=== PATIENT | female | born 1955 | race Caucasian/White ===

== ENCOUNTER 2025-10-20 16:39 | Inpatient (IN) | payer MEDICARE, OTHER ==
[2025-10-20] VITALS (28 sets, daily range): BP systolic 67–104; BP diastolic 28–84
[~2025-10-20] VITALS: Ht 167.6 cm; Wt 148.6 kg
[2025-10-20 18:32] LABS: Hematocrit 25.5 % (33.0-51.0); Hemoglobin 7.7 g/dL (11.5-16.0); Mean Corpuscular HGB Conc 30.2 g/dL (31.5-36.5); Mean Corpuscular Volume 96 fL (80-100); NRBC ABSOLUTE 0.20 K/mm3 (0.00-0.02); NRBC Auto 0.9 /100 WBC (0.0-0.2); Platelet Count 325 K/mm3 (150-400); RDW Coefficient Variation 18.0 % (11.7-14.2); RDW Standard Deviation 61.4 fL (35.1-46.3)
[2025-10-20] MEDS ORDERED: ACET325 PO (18:35)
[2025-10-20] MEDS ORDERED: ALBU90OI INH (18:36)
[2025-10-20] MEDS ORDERED: HYDCOR2.5C PR (18:37)
[2025-10-20] MEDS ORDERED: ELIQUIS5 M2 PO (18:38)
[2025-10-20] MEDS ORDERED: ATOR40TA PO (18:38)
[2025-10-20] MEDS ORDERED: BISA10S PR (18:40)
[2025-10-20] MEDS ORDERED: BISA5EC PO (18:40)
--- NOTE | 2025-10-20 18:43 | NUR ---
ARRIVAL TO ICU: PT ARRIVED TO ICU THIS EVENING A DIRECT ADMISSION FROM [facility]. PT IS ALERT, ORIENTED X3. UNSURE WHERE SHE IS AT. COOPERATIVE W/ CARE. HR 100-120'S, AFIB ON MONITOR. EKG COMPLETED DUE TO CHEST PAIN & IRREGULAR HR. SBP DOWN TO 80'S FROM 100'S, MAP 65 AT THIS TIME. CORDELIA SURVEY SUPERVISOR NOTIFIED, ORDERS TO INITIATE LEVOPHED TO MAINTAIN MAP >65. SPO2 >90% ON 3L VIA NC. AFEBRILE. MISHRA CATH IN PLACE DRAINING CLOUDY YELLOW URINE TO GRAVITY; MISHRA PLACED IN PYRITESSPORT PRIOR TO TRANSPORT. PT REPORTS RECENT BLOODY STOOLS BUT STATES SHE HAS NOT SEEN HER STOOL BUT WAS TOLD ABOUT IT BY CAREGIVERS. TYPE 2 DM, CONTINUOUS GLUCOSE MONITOR TO R UPPER ARM. PIV TO RAC, LFA SALINE LOCKED. CALL LIGHT IN REACH.
[2025-10-20] MEDS ORDERED: BUDESONIDE-FO10.2 G2 INH (18:44)
[2025-10-20] MEDS ORDERED: CEPACOL THROAT1 EAC1 MM (18:45)
[2025-10-20] MEDS ORDERED: VITAMIN D5000 UNIT PO (18:46)
[2025-10-20] MEDS ORDERED: CETI5 PO (18:46)
[2025-10-20] MEDS ORDERED: Celexa20 MG PO (18:47)
[2025-10-20] MEDS ORDERED: Voltaren100 GM TOP (18:47)
[2025-10-20] MEDS ORDERED: Estrace Vagin42.5 GM VAG (18:49)
[2025-10-20] MEDS ORDERED: FERSU300 PO (18:50)
[2025-10-20] MEDS ORDERED: GABA300 PO (18:51)
[2025-10-20] MEDS ORDERED: GUAI600T33 PO (18:51)
[2025-10-20] MEDS ORDERED: HYDCOR10 PO (18:52)
[2025-10-20] MEDS ORDERED: LANTUS SOL100 UNIT/1 SC (18:53)
[2025-10-20] MEDS ORDERED: INSULIN LI100 UNIT/6 SC (18:55)
[2025-10-20] MEDS ORDERED: JUBLIA4 ML TOP (18:55)
[2025-10-20] MEDS ORDERED: LEVSOD137 PO (18:56)
[2025-10-20] MEDS ORDERED: LIDO5TO TOP (19:07)
[2025-10-20] MEDS ORDERED: MELA3 PO (19:08)
[2025-10-20] MEDS ORDERED: MOUNJARO10 MG/0.5 SC (19:11)
[2025-10-20] MEDS ORDERED: POTA10T PO (19:12)
[2025-10-20] MEDS ORDERED: OMEP20ER PO (19:12)
[2025-10-20] MEDS ORDERED: ROPI1 PO (19:14)
[2025-10-20] MEDS ORDERED: Tasigna200 MG (19:20)
[2025-10-20] MEDS ORDERED: TRAZ50 PO (19:22)
[2025-10-20] MEDS ORDERED: TUSSIN DM 200-118 ML PO (19:24)
[2025-10-20] MEDS ORDERED: FentaNYL Citrate 50 MCG/ML 2 ML Injection IV ONE (19:45)
[2025-10-20] MEDS ORDERED: Albuterol 2.5 MG/3 ML VIAL INH PRN (20:00)
[2025-10-20] MEDS ORDERED: Ondansetron HCl 2 MG / ML 2ML Vial IV PRN (20:00)
[2025-10-20] MEDS ORDERED: FLU VACC TS2025(65UP)/MF59C/PF 45 MCG/0.5 ML SYRINGE IM SCH (20:05)
[2025-10-20] MEDS ORDERED: Amiodarone HCl 450 MG in NS 250 ML IV SCH (20:10)
[2025-10-20] MEDS ORDERED: CefTRIAXone Sodium 1,000 MG in NS 100 ML IV ONE (20:15)
[2025-10-20] MEDS ORDERED: FentaNYL Citrate 50 MCG/ML 2 ML Injection IV PRN (20:20)
[2025-10-20 21:10] LABS: Prothrombin Time Results 14.2 Sec (9.7-11.5)
--- NOTE | 2025-10-20 21:12 | NUR ---
ASSUMPTION OF CARE: ASSUMED CARE OF PT AT 1900, PT IS RELAXING IN BED AND HAS PATENT RAC & LFA PIV. PT A&O 3-4. SBP'S 80'S-90'S HR 100'S AFIB. SPO2>96% ON 3L NC. PROVIDER WAS NOTIFIED OF PRESSURE WOUND AND SEEN PT BEDSIDE. LEVOPHED STARTED AT 3MCG/MIN TO MAINTAIN MAP >65. PT REPORTS CP AND EKG WAS COMPLETED JUST BEFORE SHIFT CHANGE AND UNREMARKABLE. FENTANYL 25MCG GIVEN FOR BACK PAIN AND CP.PROVIDER AND PT TALKED ABOUT CODE STATUS CHANGED TO DNR PER PT'S REQUEST. PT HAS PATENT MISHRA DRAINING TO GRAVITY AND SEDIMENT AND PUSS IN THE TUBING. PT HAS CALL LIGHT IN REACH AND BED LOW AND LOCKED FOR SAFETY.
[2025-10-20] MEDS ORDERED: NS 250 ML IV PRN (21:15)
[2025-10-20 21:23] LABS: Alanine Aminotransfer (ALT/SGP 36.0 U/L (12-78); Albumin, Blood 2.7 g/dL (3.4-5.0); Albumin/Globulin Ratio 0.6 (0.8-1.8); Anion Gap 13.0 mmol/L (3-11); Aspartate Aminotrans (AST/SGOT 25.0 U/L (12-37); Bilirubin, Total 0.7 mg/dL (0.1-1.0); Blood Urea Nitrogen 34.0 mg/dL (8-24); CO2, Blood 20.0 mmol/L (21-32); Calcium, Blood 8.3 mg/dL (8.5-10.1); Chloride, Blood 102.0 mmol/L (98-108); Creatinine, Blood 1.49 mg/dL (0.40-1.00); Globulin, Blood 4.7 g/dL (2.2-4.0); Glucose, Blood 229.0 mg/dL (70-99); Potassium, Blood 4.4 mmol/L (3.5-5.5); Sodium, Blood 131.0 mmol/L (136-145); Thyroid Stimulating Hormone 0.036 uIU/mL (0.360-4.800); Total Protein, Blood 7.4 g/dL (6.4-8.2)
[2025-10-20 22:52] LABS: Hematocrit 26.1 % (33.0-51.0); Hemoglobin 7.9 g/dL (11.5-16.0)
[2025-10-21] VITALS (92 sets, daily range): BP systolic 79–130; BP diastolic 54–118
[2025-10-21] MEDS ORDERED: Insulin Human Lispro 100 Units/ML 3ML Syringe SC SCH
[2025-10-21] MEDS ORDERED: NS 500 ML IV SCH (00:57)
[2025-10-21 04:22] LABS: Hematocrit 25.5 % (33.0-51.0); Hemoglobin 7.6 g/dL (11.5-16.0); Mean Corpuscular HGB Conc 29.8 g/dL (31.5-36.5); Mean Corpuscular Volume 97 fL (80-100); NRBC ABSOLUTE 0.26 K/mm3 (0.00-0.02); NRBC Auto 0.7 /100 WBC (0.0-0.2); Platelet Count 456 K/mm3 (150-400); RDW Coefficient Variation 17.9 % (11.7-14.2); RDW Standard Deviation 62.6 fL (35.1-46.3)
[2025-10-21 04:37] LABS: Prothrombin Time Results 15.3 Sec (9.7-11.5)
[2025-10-21 04:41] LABS: Alanine Aminotransfer (ALT/SGP 46.0 U/L (12-78); Albumin, Blood 2.5 g/dL (3.4-5.0); Albumin/Globulin Ratio 0.5 (0.8-1.8); Anion Gap 16.0 mmol/L (3-11); Aspartate Aminotrans (AST/SGOT 45.0 U/L (12-37); Bilirubin, Total 0.7 mg/dL (0.1-1.0); Blood Urea Nitrogen 43.0 mg/dL (8-24); CO2, Blood 16.0 mmol/L (21-32); Calcium, Blood 8.0 mg/dL (8.5-10.1); Chloride, Blood 102.0 mmol/L (98-108); Creatinine, Blood 1.75 mg/dL (0.40-1.00); Globulin, Blood 4.6 g/dL (2.2-4.0); Glucose, Blood 265.0 mg/dL (70-99); Potassium, Blood 5.2 mmol/L (3.5-5.5); Sodium, Blood 129.0 mmol/L (136-145); Total Protein, Blood 7.1 g/dL (6.4-8.2)
[2025-10-21 04:46] LABS: BAND PERCENT MAN 3 % (0-8); BASOPHILS ABSOLUTE MAN 0.00 K/mm3 (0.00-0.23); BASOPHILS PERCENT MAN 0 % (0-2); EOSINOPHILS ABSOLUTE MAN 0.00 K/mm3 (0.00-0.68); EOSINOPHILS PERCENT MAN 0 % (0-6); LYMPHOCYTES ABSOLUTE MAN 0.36 K/mm3 (0.84-5.20); LYMPHOCYTES PERCENT MAN 1 % (21-46); METAMYELOCYTE ABSOLUTE MAN 0.72 K/mm3 (0.00-0.00); METAMYELOCYTE PERCENT MAN 2 % (0-0); MONOCYTES ABSOLUTE MAN 1.44 K/mm3 (0.16-1.47); MONOCYTES PERCENT MAN 4 % (4-13); MYELOCYTE ABSOLUTE MAN 1.80 K/mm3 (0.00-0.00); MYELOCYTE PERCENT MAN 5 % (0-0); NEUTROPHILS ABSOLUTE MAN 31.76 K/mm3 (1.96-9.15); SEG NEUTROPHILS PERCENT MAN 85 % (41-73)
[2025-10-21] MEDS ORDERED: Levothyroxine Sodium 0.137 MG Tab PO SCH (06:00)
--- NOTE | 2025-10-21 06:11 | NUR ---
SHIFT SUMM: PT IS A&OX3-4, SBP'S 80'S-90'S AND HR IN 100-110'S AFIB. LEVOPHED AND AMIODARONE CONTINUE TO INFUSE (SEE EMAR) WITH A GOAL MAP OF >65. PT HAS A PATENT RAC PIV AND LIJ CENTRAL LINE. PT CURRENTLY HAS LR INFUSING AT 125ML/HR FOR 500ML'S FOR RISING LACTIC ACID (SEE LABS). PT IS MAINTAING SPO2 >94% ON 3L NC. PATENT MISHRA DRAINING YELLOW URINE W/SEDIMENT TO GRAVITY. PT HAS BEEN GIVEN NAUSEA MED X1 THIS SHIFT AND FENTANYL FOR PAIN PRN Q2 FOR CP AND BACK PAIN (SEE EMAR). PT HAS 1 MEDIUM BM THIS SHIFT THAT WAS VERY DARK. PT RECIEVED INSULIN COVERAGE THIS SHIFT. FULL LIQUID DIET. CALL LIGHT IN REACH AND BED LOW AND LOCKED FOR SAFETY.
--- NOTE | 2025-10-21 08:34 | NUR ---
PALLIATIVE CARE CONSULT: RECEIVED CONSULT FOR AD/POLST, ADVANCED CARE PLANNING. REVIEWED MEDICAL RECORD. NO POLST ON FILE HERE BUT FOUND POLST ON FILE WITH [facility] STATING CPR. PT IS CURRENTLY DNR. WILL ADDRESS WITH PT/SPOUSE. WILL RECOMMEND NEW POLST TO BE COMPLETED AND REQUEST ADVANCE DIRECTIVE.
[2025-10-21] MEDS ORDERED: Insulin Glargine 100 Unit/ML 3 ML SYR SC SCH (09:00)
[2025-10-21] MEDS ORDERED: Estradiol Vag Cream 0.1 MG/G 42.5 GM Tube VAG SCH (09:00)
--- NOTE | 2025-10-21 09:24 | NUR ---
ASSUMPTION OF CARE ASSUMED CARE OF PATIENT AT APPORX 0700. PATIENT A&OX4 AND ABLE TO MAKE NEEDS KNOWN. 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 HR AFIB IN THE 90S-100S. LEFT IJ PATENT AND INFUSING LEVOPHED AND AMIO PER EMAR. SEE FLOWSHEET FOR TITRATION. BP STABLE WITH MAPS >65 ON THE LEVOPHED. PATIENT ON 3LO2 VIA NC WITH SPO2 >94%. MISHRA PATENT AND DRAINING YELLOW URINE TO GRAVITY. LR BOLUS INFUSING AT 125 ML/HR. CALL LIGHT IN REACH. BED IN LOWEST POSITION.
--- NOTE | 2025-10-21 10:11 | NUR ---
PALLIATIVE CARE NOTE: CALLED [facility] AND REQUESTED AD/POLST/POA RECORDS ON FILE. SPOKE TO KAITLIN IN [facility]. SHE STATED PT DOES NOT HAVE A AD OR POA ON FILE. PT POLST STATES DNR FULL MEASURES. SHE WILL FAX POLST TO DEPT.
--- NOTE | 2025-10-21 10:34 | NUR ---
PROVIDER CONTACT DR WEST SAW PICTURES OF PATIENTS WOUND ON RIGHT PERITONEAL FOLD AND BUTTOCKS.
[2025-10-21] MEDS ORDERED: Albumin (Human) 25gm/100ml 100 ML IV ONE (11:30)
--- NOTE | 2025-10-21 15:13 | NUR ---
PALLIATIVE CARE VISIT: MET WITH PT AT 1135 TO DISCUSS ADVANCED CARE PLANNING AND AD/POLST. SHE IS AGREEABLE TO VISIT. PT STATES SHE IS DNR/FULL MEASURES. EDUCATED HER ON WHAT DNR FULL MEASURES IS. PT STATES SHE WOULD WANT TO BE INTUBATED BUT NO CPR. 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 RECEIVED POLST AND ADVANCE DIRECTIVE FROM [facility] VIA FAX. POLST STATES DNR, FULL MEASURES DATED 07/11/24. ADVANCE DIRECTIVE NAMES JUAN [facility] REP. SENT TO MEDICAL RECORDS AND PLACED COPY ON CHART. FAXED COPY TO [facility]. CALLED DR. WEST AND HE IS AGREEABLE TO LIMITED CODE STATUS, PROVIDE MEDICATIONS AND INTUBATION. UPDATED BREAK RN.
[2025-10-21] MEDS ORDERED: Nystatin 100,000 Unit/ML Susp 5 ML UDC SS SCH (17:00)
--- NOTE | 2025-10-21 17:23 | NUR ---
SHIFT SUMMARY PATIENT ALERT AND ORIENTED X4 WITH SOME INTERMITTENT CONFUSION. PATIENT IS ABLE TO MAKE NEEDS KNOWN. HR AFIB IN THE 80S-100S. LEFT IJ PATENT AND INFUSING LEVOPHED AND AMIO PER EMAR. SEE FLOWSHEET FOR TITRATIONS. BP STABLE ON THE LEVOPHED WITH MAPS >65. PATIENT ON RA WITH SPO2 >94%. MISHRA PATENT AND DRAINING YELLOW URINE TO GRAVITY. PATIENT MEDICATED WITH ZOFRAN PER EMAR X1 THIS SHIFT FOR NAUSEA. PATIENT TOLERATES WATER AND ICE CHIPS. ONE SMEAR BM THIS SHIFT. PATIENT WILL HAVE BIOPSY TOMORROW MORNING FOR GROWTH ON RIGHT PERITONEAL FOLD WITH DR MORENO AT BEDSIDE. CALL LIGHT IN REACH. BED IN LOWEST POSITION.
[2025-10-21] MEDS ORDERED: CefTRIAXone Sodium 2,000 MG in NS 100 ML IV SCH (21:00)
--- NOTE | 2025-10-21 22:16 | NUR ---
ASSUMPTION OF CARE NOTE: PT IS RELAXING IN BED AND ABLE TO ANSWER ALL ORIENTATION QUESTIONS AND FOLLOW COMMANDS. CURRENTLY ON RA AND SPO2 >94%. LEVO INFUSING AT 3MCG/MIN-SBP'S 100'S AND HR AFIB 100-110'S. AMIODARONE INFUSING AND WILL BE SHUT OFF AT 2230 (SEE EMAR). PATENT MISHRA DRAINING TO GRAVITY WITH SEDIMENT IN THE TUBING. PATENT LIJ. PT WAS EXPERIENCING NAUSEA FOR DAYSHIFT BUT REPORTS NONE RIGHT NOW AND TOLERATING ICE CHIPS. PT REPORTS NO PAIN. CALL LIGHT IN REACH AND BED LOW AND LOCKED FOR SAFETY.
[2025-10-22] VITALS (63 sets, daily range): BP systolic 75–142; BP diastolic 11–124
[2025-10-22 03:41] LABS: BASOPHILS ABSOLUTE AUTO 0.09 K/mm3 (0.00-0.23); BASOPHILS PERCENT AUTO 0 % (0-2); EOSINOPHILS ABSOLUTE AUTO 0.00 K/mm3 (0.00-0.68); EOSINOPHILS PERCENT AUTO 0 % (0-6); Hematocrit 21.9 % (33.0-51.0); Hemoglobin 6.5 g/dL (11.5-16.0); IMMATURE GRAN ABSOLUTE AUTO 1.72 K/mm3 (0.00-0.10); IMMATURE GRAN PERCENT AUTO 6 % (0-1); LYMPHOCYTES ABSOLUTE AUTO 0.64 K/mm3 (0.84-5.20); LYMPHOCYTES PERCENT AUTO 2 % (21-46); MONOCYTES ABSOLUTE AUTO 1.07 K/mm3 (0.16-1.47); MONOCYTES PERCENT AUTO 4 % (4-13); Mean Corpuscular HGB Conc 29.7 g/dL (31.5-36.5); Mean Corpuscular Volume 94 fL (80-100); NEUTROPHILS ABSOLUTE AUTO 23.72 K/mm3 (1.96-9.15); NEUTROPHILS PERCENT AUTO 87 % (41-73); NRBC ABSOLUTE 0.04 K/mm3 (0.00-0.02); NRBC Auto 0.1 /100 WBC (0.0-0.2); Platelet Count 296 K/mm3 (150-400); RDW Coefficient Variation 18.0 % (11.7-14.2); RDW Standard Deviation 60.4 fL (35.1-46.3)
[2025-10-22 03:56] LABS: Anion Gap 13.0 mmol/L (3-11); Blood Urea Nitrogen 54.0 mg/dL (8-24); CO2, Blood 19.0 mmol/L (21-32); Calcium, Blood 8.2 mg/dL (8.5-10.1); Chloride, Blood 101.0 mmol/L (98-108); Creatinine, Blood 2.06 mg/dL (0.40-1.00); Glucose, Blood 231.0 mg/dL (70-99); Potassium, Blood 4.8 mmol/L (3.5-5.5); Sodium, Blood 128.0 mmol/L (136-145)
[2025-10-22 04:26] LABS: pH Blood Venous 7.31 (7.34-7.37)
[2025-10-22] MEDS ORDERED: Bupivacaine HCl 0.25% 30 ML Injection SC SCH (06:00)
--- NOTE | 2025-10-22 06:18 | NUR ---
SHIFT SUMM: PT'S ORIENTATION REMAINS THE SAME ABLE TO MAKE NEEDS KNOWN AND ANSWER QUESTIONS/FOLLOW COMMANDS. LEVO AND AMIODARONE OFF. SBP'S 100'S-130'S AND MAP GOAL >65. HR IN 100-110'S. SPO2 96% ON 2LNC WHILE ASLEEP OR SOB AND RA BASELINE. PATENT MISHRA DRAINING TO GRAVITY AND PATENT LIJ. SOME NAUSEA THIS SHIFT AND ZOFRAN GIVEN.PT REPORTS NO PAIN. HGB 6.5- 1 UNIT PRBC INFUSING. PT HAD A SMALL BM THIS SHIFT. CALL LIGHT CLOSE AND BED LOW AND LOCKED FOR SAFETY.
--- NOTE | 2025-10-22 08:24 | NUR ---
ASSUMPTION OF CARE ASSUMED CARE OF PATIENT AT APPROX 0700. PATIENT A&OX4 AND ABLE TO MAKE NEEDS KNOWN. OCCATIONALLY PATIENT WILL CALL OUT FOR HELP INSTEAD OF USING CALL LIGHT. HR AFIB IN THE 80S-90S. BP STABLE WITH MAPS >65. LEFT IJ PATENT AND INFUSING BLOOD PER EMAR. PATIENT ON RA WITH SPO2 >94%. MISHRA PATENT AND DRAINING URINE TO GRAVITY. CALL LIGHT IN REACH. BED IN LOWEST POSITION.
[2025-10-22] MEDS ORDERED: Albumin (Human) 25gm/100ml 100 ML IV ONE (11:40)
--- NOTE | 2025-10-22 17:22 | NUR ---
SHIFT SUMMARY PATIENT A&OX4 AND ABLE TO MAKE NEEDS KNOWN. PATIENT ENDORSES NEUROPATHY IN BLE. PATIENT USES CALL LIGHT, BUT OCCATIONALLY WILL YELL OUT FOR HELP. HR AFIB IN THE 80S-100S. BP STABLE WITH MAPS >65. PATIENT HAS PITTING EDEMA TO BLE. PATIENT ON RA WITH SPO2 >94%. PATIENT WORE 2L O2 A COUPLE TIMES THROUGHOUT THE DAY AFTER LYING FLAT D/T SOB. MISHRA PATENT AND DRAINING URINE TO GRAVITY. PATIENT HAD ONE BM THIS SHIFT. PATIENT WILL START BOWEL PREP FOR COLONOSCOPY THIS EVENING. LEFT IJ WAS REMOVED TODAY. PICC TO JEAN-PIERRE PATENT AND SALINE LOCKED. CALL LIGHT IN REACH. BED IN LOWEST POSITION.
[2025-10-22] MEDS ORDERED: Peg/Electrolytes 4,000 ML BTL PO ONE (18:00)
--- NOTE | 2025-10-22 18:36 | NUR ---
PROVIDER CONTACT DR STAFFORD CONTACTED ABOUT PATIENT SHOWING S/S OF FLUID OVERLOAD WITH WORSENING SOB WITH EXERTION AND PERIPHERAL EDEMA. PATIENT ORDERED TO CONSUME 4L BOWEL PREP OVER NEXT [address] STAFFORD GIVING ONE TIME ORDER FOR 80MG LASIX NOW.
--- NOTE | 2025-10-22 20:45 | NUR ---
ASSUMED CARE AT 1900 PATIENT IS ALERT AND ORIENTED X3, FORGETFUL. FOLLOWS ALL COMMANDS, WEAKNESS. 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 SP02 95% ON 2L VIA NC, BREATHING TREATMENT PER RT. LS CLEAR TO DIMINISHED. HR AFIB 90s-110. BP STABLE. DENIES CP/PRESSURE. MISHRA PATENT AND DRAINING TO GRAVITY. PATIENT DRINKING BOWEL PREP. REPOSITIONED. CALL LIGHT IN REACH
[2025-10-22] MEDS ORDERED: Insulin Glargine 100 Unit/ML 3 ML SYR SC SCH (21:00)
[2025-10-23] VITALS (23 sets, daily range): BP systolic 85–139; BP diastolic 35–95
[2025-10-23 03:33] LABS: BASOPHILS ABSOLUTE AUTO 0.03 K/mm3 (0.00-0.23); BASOPHILS PERCENT AUTO 0 % (0-2); EOSINOPHILS ABSOLUTE AUTO 0.00 K/mm3 (0.00-0.68); EOSINOPHILS PERCENT AUTO 0 % (0-6); Hematocrit 23.4 % (33.0-51.0); Hemoglobin 7.2 g/dL (11.5-16.0); IMMATURE GRAN ABSOLUTE AUTO 1.02 K/mm3 (0.00-0.10); IMMATURE GRAN PERCENT AUTO 5 % (0-1); LYMPHOCYTES ABSOLUTE AUTO 0.47 K/mm3 (0.84-5.20); LYMPHOCYTES PERCENT AUTO 2 % (21-46); MONOCYTES ABSOLUTE AUTO 1.09 K/mm3 (0.16-1.47); MONOCYTES PERCENT AUTO 5 % (4-13); Mean Corpuscular HGB Conc 30.8 g/dL (31.5-36.5); Mean Corpuscular Volume 93 fL (80-100); NEUTROPHILS ABSOLUTE AUTO 18.83 K/mm3 (1.96-9.15); NEUTROPHILS PERCENT AUTO 88 % (41-73); NRBC ABSOLUTE 0.03 K/mm3 (0.00-0.02); NRBC Auto 0.1 /100 WBC (0.0-0.2); Platelet Count 263 K/mm3 (150-400); RDW Coefficient Variation 18.1 % (11.7-14.2); RDW Standard Deviation 58.4 fL (35.1-46.3)
[2025-10-23 03:34] LABS: pH Blood Venous 7.36 (7.34-7.37)
[2025-10-23 03:45] LABS: Anion Gap 13.0 mmol/L (3-11); Blood Urea Nitrogen 61.0 mg/dL (8-24); CO2, Blood 20.0 mmol/L (21-32); Calcium, Blood 7.8 mg/dL (8.5-10.1); Chloride, Blood 101.0 mmol/L (98-108); Creatinine, Blood 1.92 mg/dL (0.40-1.00); Glucose, Blood 213.0 mg/dL (70-99); Potassium, Blood 4.7 mmol/L (3.5-5.5); Sodium, Blood 129.0 mmol/L (136-145)
--- NOTE | 2025-10-23 06:21 | NUR ---
SHIFT SUMMARY PATIENT IS ALERT AND ORIENTED X3-4. SP02 95% ON 2L VIA NC. SOB WITH ANY EXERTION AND REPOSITIONING. LS CLEAR TO DIMINISHED. HR AFIB 90s-110s. BP STABLE. DENIES CP/PRESSURE. MISHRA PATENT AND DRAINING TO GRAVITY. ONE LARGE BM THIS SHIFT, PATIENT DRINKING BOWEL PREP AGAIN THIS AM. REPOSITIONED Q2 HOURS. CALL LIGHT IN REACH
[2025-10-23] MEDS ORDERED: Peg/Electrolytes 4,000 ML BTL PO ONE (07:00)
--- NOTE | 2025-10-23 07:00 | NUR ---
ASSUMED CARE. RECEIVED REPORT FROM RN AT BEDSIDE. PT IN BED. PT DRINKING BOWEL PREP WILLINGLY WITHOUT NAUSEA OR VOMITING. NO STOOL AT THIS TIME. F/C PATENT. VSS. NO VAGINAL DRAINAGE. 4+ PITTING EDEMA IN BLE. GENERALIZED EDEMA.
--- NOTE | 2025-10-23 14:00 | NUR ---
PT HAS HAD 2 XTRA LARGE STOOLS AND 2 SMALL SMEARS. PT STILL HAVEING BLACK RUNNY STOOLS. DR. Brady NOTIFIED. NEW ORDER FOR SUPREP OBTAINED AND PHARMACY WILL SEND IT STAT.
[2025-10-23 14:34] LABS: Ferritin, Serum 104.0 ng/mL (8-252); Total Iron Binding Capacity 303.0 ug/dL (250-450)
--- NOTE | 2025-10-23 17:32 | NUR ---
END OF SHIFT. PT HAS HAD MULTIPLE BLACK LIQUID STOOLS FROM BOWEL PREP. 0 RED MIXED IN IT. FECAL MANAGEMENT DEVICE PLACED. VSS. DR. SNEED NOTIFIED OF CONTINUED BLACK LIQUID STOOLS AND 2ND BOWEL PREP OF SURPRED GIVEN. PT HAS O2 AT 2 LITERS ON WITH A SATURATION OF 92. PT IS 88% ON ROOM AIR. P.T. HAS EXAMINED PT TODAY. PT IS SCHEDULED FOR A CONONOSCOPY TODAY WITHOUT A SET TIME BUT STOOLS AT THIS TIME ARE STILL BLACK.F/C THAT WAS INSERTED IN [facility] IS PATENT.CBG'S ARE Q 6 HOURS WITH SLIDING SCALE COVERAGE AND HAS RANGED FROM 170-230.MEDICATED WITH FENTANYL 25 MICS DUE TO ANUS PAIN.
--- NOTE | 2025-10-23 18:19 | NUR ---
PT TO DAY SURGERY. PT TAKEN VIA BED MONITORED WITH O2 AT 2 LITERS PER NC. 0 C/O PAIN. F/C AND FECAL MANAGEMENT DEVICE IN PLACE. PT HAS BLACK STOOL IN TUBING. COLONOSCOPY ON HOLD. PT WILL HAVE EGD DONE.
--- NOTE | 2025-10-23 18:38 | NUR ---
RETURN FROM DAY SURGERY. PT RETURNED VIA BED WITHOUT PRECEDURE DONE. PT WILL BE DONE LATER TONIGHT.PT A LITTLE CONFUSED AND FRUSTRATED. PT ALLOWED TO VENT. PT STATES SHE FEELS BETTER.
--- NOTE | 2025-10-23 20:00 | NUR ---
ASSUMPTION OF CARE: ASSUMED CARE AT START OF SHIFT (1899). REPORT RECEIVED FROM DAY SHIFT RN. PT IS DOING WELL AND RESTING IN BED. PT IS ALERT AND FOLLOWING COMMANDS. PT DENIES ANY CP OR SOB AT THIS TIME. LUNG SOUNDS ARE CLEAR, PT IS ON 02 @ 2LPM VIA NC, SP2 >95%. A-FIB RYTHM WITH SBP: 120'S MAP >65 HR: 90-100'S. IV: PICC LINE IN RUE. MISHRA CATHETER AND RECTAL TUBE IN PLACE AND DRAINING TO GRAVITY. LINES, CORDS, AND TUBES PLACED OUT OF REACH. CALL LIGHT PLACED WITHIN REACH.
[2025-10-23] MEDS ORDERED: FentaNYL Citrate 50 MCG/ML 2 ML Injection ONE (20:58)
[2025-10-23] MEDS ORDERED: Dexamethasone Sod Phos 10 MG/ML 1ML VIAL ONE (20:59)
[2025-10-23] MEDS ORDERED: Ondansetron HCl 2 MG / ML 2ML Vial ONE (20:59)
[2025-10-23] MEDS ORDERED: SuccINYLCHOLINE Chloride 100 MG/5 ML 5MLSYR ONE (20:59)
[2025-10-24] VITALS (20 sets, daily range): BP systolic 107–149; BP diastolic 60–90
[2025-10-24] MEDS ORDERED: DEXTROMETHORPHAN/BENZOCAINE 1 EACH LOZENGE MT PRN (00:45)
--- NOTE | 2025-10-24 06:50 | NUR ---
SHIFT SUMMARY: PT IS DOING WELL AND RESTING IN BED. NO ACUTE CHNAGES THROUGHOUT THE SHIFT. VITAL SIGNS REMAIN STABLE. PT WAS ABLE TO SLEEP A PORTION OF THE NIGHT. PRIOR TO SHIFT CHANGE PT STARTED FEELING SOB AND THEY HAD AUDIBLE WHEEZES. PT ECEIVED A BREATHING TREATMENT. POST TREATMENT PT STATED THAT THEIR BREATHING FELT BETTER. IV: PICC LINE IN RUE. MISHRA CATHETER IN PLACE AND DRAINING TO GRAVITY. LINES AND CORDS PLACED OUT OF REACH. CALL LIGHT PLACED WITHIN REACH.
--- NOTE | 2025-10-24 08:59 | NUR ---
ASSUMPTION OF CARE/TRANSFER TO PCU: THIS RN ASSUMED CARE OF PT AT APPROX 0700, BEDSIDE REPORT FROM HECTOR RESENDEZ. PT A/OX4, ABLE TO MAKE NEEDS KNOWN. VSS. KAYLENE DAVIS BM THIS AM, ROCKY CARE/MISHRA CARE PROVIDED. PT NPO OF 0800 FOR EGD W/ DR. SNEED. REPORT TO ARABELLA RESENDEZ TO ASSUME CARE OF PT. PT TRANSFERRED TO PCU-4 BY THIS RN.
[2025-10-24 09:37] LABS: BASOPHILS ABSOLUTE AUTO 0.02 K/mm3 (0.00-0.23); BASOPHILS PERCENT AUTO 0 % (0-2); EOSINOPHILS ABSOLUTE AUTO 0.00 K/mm3 (0.00-0.68); EOSINOPHILS PERCENT AUTO 0 % (0-6); Hematocrit 23.9 % (33.0-51.0); Hemoglobin 7.4 g/dL (11.5-16.0); IMMATURE GRAN ABSOLUTE AUTO 0.44 K/mm3 (0.00-0.10); IMMATURE GRAN PERCENT AUTO 3 % (0-1); LYMPHOCYTES ABSOLUTE AUTO 0.31 K/mm3 (0.84-5.20); LYMPHOCYTES PERCENT AUTO 2 % (21-46); MONOCYTES ABSOLUTE AUTO 0.72 K/mm3 (0.16-1.47); MONOCYTES PERCENT AUTO 5 % (4-13); Mean Corpuscular HGB Conc 31.0 g/dL (31.5-36.5); Mean Corpuscular Volume 95 fL (80-100); NEUTROPHILS ABSOLUTE AUTO 14.68 K/mm3 (1.96-9.15); NEUTROPHILS PERCENT AUTO 91 % (41-73); NRBC ABSOLUTE 0.00 K/mm3 (0.00-0.02); NRBC Auto 0.0 /100 WBC (0.0-0.2); Platelet Count 247 K/mm3 (150-400); RDW Coefficient Variation 17.8 % (11.7-14.2); RDW Standard Deviation 59.1 fL (35.1-46.3)
[2025-10-24] MEDS ORDERED: NS 500 ML IV SCH (09:50)
[2025-10-24 09:58] LABS: Anion Gap 14.0 mmol/L (3-11); Blood Urea Nitrogen 54.0 mg/dL (8-24); CO2, Blood 22.0 mmol/L (21-32); Calcium, Blood 8.4 mg/dL (8.5-10.1); Chloride, Blood 100.0 mmol/L (98-108); Creatinine, Blood 1.6 mg/dL (0.40-1.00); Glucose, Blood 200.0 mg/dL (70-99); Potassium, Blood 3.3 mmol/L (3.5-5.5); Sodium, Blood 133.0 mmol/L (136-145)
--- NOTE | 2025-10-24 11:00 | NUR ---
10/24/25 Gerri Ontiveros INTO OR 4 @ 1040- CONFIRMED AND REVIEWED H&P, MEDCICATIONS, ALLERGIES, MEDICAL HISTORY, RESPIRATORY HISTORY, VITAL SIGNS, 3-LEAD EKG, CONSENTS, AND PHYSICIAN ORDERS. PATIENT CONFIRMS NPO STATUS AND AGREES WITH SCHEDULED PROCEDURE. MONITOR INTACT WITH CONTINUOUS PULSE OXIMETRY, CAPNOGRAPHY, 3-LEAD EKG, INTERMITTENT BP. SUPPLEMENTAL O2 TO BE TITRATED THROUGHOUT PROCEDURE TO MAINTAIN O2 SATURATION ABOVE 90%. PATIENT DETERMINED TO BE ASA APPROPRIATE FOR GENERAL. PROVIDING ANESTHESIA-SEE ANESTHESIA RECORD.
[2025-10-24] MEDS ORDERED: Albuterol 2.5 MG/3 ML VIAL ONE (11:29)
[2025-10-24] MEDS ORDERED: Iron Dextran 50 MG / ML 2ML Vial IV ONE (12:00)
[2025-10-24] MEDS ORDERED: Iron Dextran 975 MG in NS 250 ML IV ONE (13:00)
--- NOTE | 2025-10-24 18:49 | NUR ---
SHIFT SUMMARY PATIENT AOX4 ABLE TO MAKE NEEDS KNOWN SHE DENIES CP OR SOB. SHE TRANSFERED FROM ICU TO PCU. WAS NPO FOR EGD. VITALS STABLE AND TOLERATING HER MEALS S/P EGD. SHE DID HAVE 2 INCONTINENT LOOSE DARK BROWN STOOLS. HER MISHRA IS DRAINING CLEAR YELLOW URINE TO GRAVITY. SHE IS SATTING GREATER THAN 90% BETWEEN 1-3L NC.
[2025-10-25 04:21] VITALS: BP 137/83
[2025-10-25 04:25] LABS: BASOPHILS ABSOLUTE AUTO 0.02 K/mm3 (0.00-0.23); BASOPHILS PERCENT AUTO 0 % (0-2); EOSINOPHILS ABSOLUTE AUTO 0.00 K/mm3 (0.00-0.68); EOSINOPHILS PERCENT AUTO 0 % (0-6); Hematocrit 23.4 % (33.0-51.0); Hemoglobin 7.1 g/dL (11.5-16.0); IMMATURE GRAN ABSOLUTE AUTO 0.50 K/mm3 (0.00-0.10); IMMATURE GRAN PERCENT AUTO 4 % (0-1); LYMPHOCYTES ABSOLUTE AUTO 0.33 K/mm3 (0.84-5.20); LYMPHOCYTES PERCENT AUTO 2 % (21-46); MONOCYTES ABSOLUTE AUTO 0.82 K/mm3 (0.16-1.47); MONOCYTES PERCENT AUTO 6 % (4-13); Mean Corpuscular HGB Conc 30.3 g/dL (31.5-36.5); Mean Corpuscular Volume 94 fL (80-100); NEUTROPHILS ABSOLUTE AUTO 12.26 K/mm3 (1.96-9.15); NEUTROPHILS PERCENT AUTO 88 % (41-73); NRBC ABSOLUTE 0.05 K/mm3 (0.00-0.02); NRBC Auto 0.4 /100 WBC (0.0-0.2); Platelet Count 219 K/mm3 (150-400); RDW Coefficient Variation 17.5 % (11.7-14.2); RDW Standard Deviation 58.4 fL (35.1-46.3)
--- NOTE | 2025-10-25 04:36 | NUR ---
SHIFT SUMMARY THIS RN ASSUMED CARE OF PATIENT AT 1900. PT A&O X3-4. OCCASIONALLY CONFUSED ABOUT WHERE SHE IS WHEN SHE WAKES UP. NEEDING 1-2L VIA NC TO MAINTAIN SPO2. BP STABLE. AFIB WITH HR 80-90'S. PT DENIES CHEST PAIN/PRESSURE. DENIES N/V. NOTED SMALL SMEARS OF DARK INCONTINENT STOOLS. PT DECLINED COLONOSCOPY PREVIOUSLY. HGB STABLE THIS AM >7. REPOSITIONING Q2HRS. CATHETER PATENT AND DRAINING TO GRAVITY. BED IN LOWEST POSITION AND CALL LIGHT WITHIN REACH. THIS RN WILL REPORT TO ONCOMING DAYSHIRODNEY RN.
[2025-10-25 04:43] LABS: Anion Gap 13.0 mmol/L (3-11); Blood Urea Nitrogen 51.0 mg/dL (8-24); CO2, Blood 22.0 mmol/L (21-32); Calcium, Blood 8.1 mg/dL (8.5-10.1); Chloride, Blood 99.0 mmol/L (98-108); Creatinine, Blood 1.54 mg/dL (0.40-1.00); Glucose, Blood 206.0 mg/dL (70-99); Potassium, Blood 3.7 mmol/L (3.5-5.5); Sodium, Blood 130.0 mmol/L (136-145)
[2025-10-25] MEDS ORDERED: Insulin Human Lispro 100 Units/ML 3ML Syringe SC SCH (07:30)
[2025-10-25 07:59] VITALS: BP 133/69
--- NOTE | 2025-10-25 10:38 | NUR ---
RN Note Ms Pollard has abdominal tenderness but denies generalised pain. She c/o continuing shortness of breath over the last month. Dry cough, sats in the 90s on 2L nc O2. SOB when talking, SOB when head of bed lowered. Afib on telemetry in the 90s. She has a lump in her left side of her neck that she said is new, Dr Lyles informed on rounds this am. Repositioned at least every 2 hours with Huyer lift and pillows. Legs with pitting edema elevated on pillows with heel relief. Bed low, call light in reach.
[2025-10-25 11:20] VITALS: BP 130/70
--- NOTE | 2025-10-25 15:31 | NUR ---
Shift Note Ms Pollard is up in the recliner, Huyer lift used and waffle pillow underneith her. She reports feeling comfortable in the recliner. O2 sat in the 90s on 1L nc, she still has SOB when talking or with exertion. She denies any pain at this time, some leg discomfort when repositioned. Afib on tele, no calls from telecom coordinator. Atwood catheter in place, 2L emptied so far this shift, clear yellow urine. Appropriate conversation, orientated x4, call light used and within reach.
[2025-10-25 16:07] VITALS: BP 120/77
--- NOTE | 2025-10-25 16:29 | NUR ---
RN note weaned to room air 20 minutes ago. Sat 95% currently. Home med nilotinib ordered. Ms Pollard lives a distance away and said that there is noone who can bring it in from home. Pharmacy was called to question if there is a replacement that can be given but there is not.
[2025-10-25 19:53] VITALS: BP 130/87
[2025-10-25 23:27] VITALS: BP 127/75
[2025-10-26 03:48] VITALS: BP 125/83
[2025-10-26 04:05] LABS: Hematocrit 23.5 % (33.0-51.0); Hemoglobin 7.2 g/dL (11.5-16.0); Mean Corpuscular HGB Conc 30.6 g/dL (31.5-36.5); Mean Corpuscular Volume 94 fL (80-100); NRBC ABSOLUTE 0.08 K/mm3 (0.00-0.02); NRBC Auto 0.5 /100 WBC (0.0-0.2); Platelet Count 207 K/mm3 (150-400); RDW Coefficient Variation 17.2 % (11.7-14.2); RDW Standard Deviation 58.0 fL (35.1-46.3)
[2025-10-26 04:23] LABS: Alanine Aminotransfer (ALT/SGP 91.0 U/L (12-78); Albumin, Blood 2.9 g/dL (3.4-5.0); Albumin/Globulin Ratio 0.7 (0.8-1.8); Anion Gap 9.0 mmol/L (3-11); Aspartate Aminotrans (AST/SGOT 48.0 U/L (12-37); Bilirubin, Total 0.4 mg/dL (0.1-1.0); Blood Urea Nitrogen 50.0 mg/dL (8-24); CO2, Blood 24.0 mmol/L (21-32); Calcium, Blood 8.3 mg/dL (8.5-10.1); Chloride, Blood 100.0 mmol/L (98-108); Creatinine, Blood 1.47 mg/dL (0.40-1.00); Globulin, Blood 3.9 g/dL (2.2-4.0); Glucose, Blood 172.0 mg/dL (70-99); Potassium, Blood 3.3 mmol/L (3.5-5.5); Sodium, Blood 130.0 mmol/L (136-145); Total Protein, Blood 6.8 g/dL (6.4-8.2)
[2025-10-26 04:47] LABS: BAND PERCENT MAN 3 % (0-8); BASOPHILS ABSOLUTE MAN 0.00 K/mm3 (0.00-0.23); BASOPHILS PERCENT MAN 0 % (0-2); EOSINOPHILS ABSOLUTE MAN 0.00 K/mm3 (0.00-0.68); EOSINOPHILS PERCENT MAN 0 % (0-6); LYMPHOCYTES ABSOLUTE MAN 1.18 K/mm3 (0.84-5.20); LYMPHOCYTES PERCENT MAN 8 % (21-46); METAMYELOCYTE ABSOLUTE MAN 0.14 K/mm3 (0.00-0.00); METAMYELOCYTE PERCENT MAN 1 % (0-0); MONOCYTES ABSOLUTE MAN 0.59 K/mm3 (0.16-1.47); MONOCYTES PERCENT MAN 4 % (4-13); MYELOCYTE ABSOLUTE MAN 0.29 K/mm3 (0.00-0.00); MYELOCYTE PERCENT MAN 2 % (0-0); NEUTROPHILS ABSOLUTE MAN 12.58 K/mm3 (1.96-9.15); SEG NEUTROPHILS PERCENT MAN 82 % (41-73)
--- NOTE | 2025-10-26 05:27 | NUR ---
SHIFT SUMMARY THIS RN ASSUMED CARE OF PATIENT AT 1900. PT A&O X4. THIS RN FURTHER DISCUSSED CODE STATUS WITH PATIENT THIS SHIFT. PT REPORTED TO THIS RN THAT SHE CHANGED HER MIND , AND WANTED TO BE A FULL CODE. THIS RN SMOKE TO MD ROSALES REGARDING PATIENTS WISHES. CHANGED CODE STATUS TO FULL. PATIENT NEEDING RA-1L VIA NC TO MAINTAIN SPO2. BP STABLE. AFIB WITH HR 80-90'S. POTASSIUM REPLACEMENT ORDERED FOR THIS AM FOR K+ OF 3.3 PER MD ROSALES. PT DENIES CHEST PAIN/PRESSURE. DENIES N/V. NOTED SMALL SMEARS OF DARK INCONTINENT STOOLS THIS SHIFT. REPOSITIONING Q2HRS. CATHETER PATENT AND DRAINING TO GRAVITY. BED IN LOWEST POSITION AND CALL LIGHT WITHIN REACH. THIS RN WILL REPORT TO ONCOMING DAYSHIFT RN.
[2025-10-26 09:35] VITALS: BP 127/84
[2025-10-26 11:27] VITALS: BP 115/64
[2025-10-26 16:51] VITALS: BP 120/72
--- NOTE | 2025-10-26 19:36 | NUR ---
SHIFT SUMMARY: A/O X4, PLEASANT AND COOPERATIVE WITH CARE, ABLE TO COMMUNICATE NEEDS, USES CALL LIGHT APPROPRIATELY, LEGALLY BLIND, PT REPORTS NO VISION IN LEFT EYE AND IMPAIRED VISION IN RIGHT EYE. MORBID OBESITY, AFIB, HRR 80 S-90 S, PICC IN JEAN-PIERRE, CHG BATH PARTIALLY COMPLETE: FRONT OF BODY, ALL OF LEGS, AND UPPER BACK, PT DENIES CHEST PAIN OR PRESSURE, 4+ EDEMA TO BL FEET. SPO2 >92% ON 0.5-1L VIA NC, DYSPNIC WITH MINOR EXERTION, PT REPORTS IMPROVED WORK OF BREATHING AND IMPROVEMENT IN SOB. MISHRA IS PATENT AND DRAINING YELLOW URINE TO GRAVITY, DIURESING, PT HAVING BROWN SMEARS, NO BM THIS SHIFT. WOUNDS ON COCCYX AND LABIA: PHOTOS IN CHART, UP TO CHAIR MOST OF SHIFT, LIFT TRANSFER, TOTAL CARE. PT REPORTS CHRONIC LEUKEMIA AND TAKES ORAL CHEMO AT HOME. ORIENTED TO CALL LIGHT, EXPRESSES NO FURTHER NEEDS AT THIS TIME.
[2025-10-26] MEDS ORDERED: Polyethylene Glycol 3350 17 gm PO SCH (20:00)
[2025-10-26 20:58] VITALS: BP 125/82
[2025-10-27] VITALS: BP 125/68
[2025-10-27 04:30] VITALS: BP 126/71
[2025-10-27 06:24] LABS: Hematocrit 26.4 % (33.0-51.0); Hemoglobin 7.8 g/dL (11.5-16.0); Mean Corpuscular HGB Conc 29.5 g/dL (31.5-36.5); Mean Corpuscular Volume 92 fL (80-100); NRBC ABSOLUTE 0.10 K/mm3 (0.00-0.02); NRBC Auto 0.5 /100 WBC (0.0-0.2); Platelet Count 214 K/mm3 (150-400); RDW Coefficient Variation 17.6 % (11.7-14.2); RDW Standard Deviation 58.4 fL (35.1-46.3)
[2025-10-27 06:45] LABS: BAND PERCENT MAN 2 % (0-8); BASOPHILS ABSOLUTE MAN 0.00 K/mm3 (0.00-0.23); BASOPHILS PERCENT MAN 0 % (0-2); EOSINOPHILS ABSOLUTE MAN 0.00 K/mm3 (0.00-0.68); EOSINOPHILS PERCENT MAN 0 % (0-6); LYMPHOCYTES ABSOLUTE MAN 0.19 K/mm3 (0.84-5.20); LYMPHOCYTES PERCENT MAN 1 % (21-46); METAMYELOCYTE ABSOLUTE MAN 0.19 K/mm3 (0.00-0.00); METAMYELOCYTE PERCENT MAN 1 % (0-0); MONOCYTES ABSOLUTE MAN 0.19 K/mm3 (0.16-1.47); MONOCYTES PERCENT MAN 1 % (4-13); MYELOCYTE ABSOLUTE MAN 0.57 K/mm3 (0.00-0.00); MYELOCYTE PERCENT MAN 3 % (0-0); NEUTROPHILS ABSOLUTE MAN 18.00 K/mm3 (1.96-9.15); SEG NEUTROPHILS PERCENT MAN 92 % (41-73)
[2025-10-27 06:49] LABS: Anion Gap 11.0 mmol/L (3-11); Blood Urea Nitrogen 48.0 mg/dL (8-24); CO2, Blood 24.0 mmol/L (21-32); Calcium, Blood 8.3 mg/dL (8.5-10.1); Chloride, Blood 99.0 mmol/L (98-108); Creatinine, Blood 1.34 mg/dL (0.40-1.00); Glucose, Blood 186.0 mg/dL (70-99); Potassium, Blood 3.7 mmol/L (3.5-5.5); Sodium, Blood 130.0 mmol/L (136-145)
--- NOTE | 2025-10-27 07:39 | NUR ---
SHIFT SUMMARY: PT A&OX4 CALM AND COOPERATIVE. ABLE TO MAKE NEEDS KNOWN AND CALLS APPROPRIATELY. VSS ON .5-1L NC. MISHRA IN PLACE DRAINING TO GRAVITY. PT TOLERATING DIET. LIFT TRANSFER AND Q2 REPOSITIONING. NO OTHER ACUTE CHANGES DURING SHIFT. BED IS LOW AND LOCKED. CALL LIGHT WITHIN REACH. REPORT GIVEN TO DAY SHIFT NURSE.
[2025-10-27 08:02] VITALS: BP 114/71
[2025-10-27 11:56] VITALS: BP 119/79
--- NOTE | 2025-10-27 15:34 | NUR ---
SHIFT SUMMARY/TRANSFER PATIENT IS ALERT AND ORIENTED, ABLE TO FOLLOW COMMANDS AND MAKE NEEDS KNOWN. PATIENT REPORTS BEING LEGALLY BLIND IN LEFT EYE AND PARTIALLY ON RIGHT EYE. VSS, TELE IN PLACE, AFIB 80'S-90'S, SPO2 >90% ON 1L VIA NC, PATIENT REPORTED MILD SOB RESOLVED WITH BREATHING TREATEMENT FROM RT. PATIENT DENIES CHEST PAIN OR PRESSURE THROUGHOUT SHIFT. ABDOMEN IS MILDLY DISTENDED WHICH PATIENT STATES IS NORMAL, NO PAIN WITH PALPATION, DENIES N/V/D. MISHRA CATHETER REMOVED THIS SHIFT, PUREWICK PLACED AND DRAINING TO SUCTION. PATIENT IS A LIFT ASSIST TO CHAIR AND WHEELCHAIR BOUND AT BASELINE. REPORT GIVEN TO MEDICAL FLOOR RN. PATIENT LEFT UNIT VIA HOSPITAL BED AT 1530. ALL PERSONAL BELONGINGS WITH PATIENT. PATIENT IN NO SIGNS OF DISTRESS.
[2025-10-27 17:49] VITALS: BP 115/74
[2025-10-27 22:16] VITALS: BP 102/70
[2025-10-28 03:34] VITALS: BP 128/71
--- NOTE | 2025-10-28 04:45 | NUR ---
SHIFT SUMMARY 70 YR F ADMITTED ON 10/20/25. FULL CODE. NO ACUTE CHANGES THIS SHIFT. PT HAS A PUREWIK THAT IS WORKING WELL FOR HER. IT IS PAINFUL FOR PT TO BE MOVED OR REPOSITIONED AT ALL. PT REQUESTED (INSISTED) THAT SCD'D BE TAKEN OFF FOR THE NIGHT. SHE STATED THAT THEY WERE CAUSING HER PAIN IN HER LEGS. PT APPEARS TO HAVE SLEPT OFF AND ON THROUGHOUT THE NIGHT. NO BM THIS SHIFT. NO OTHER CHANGES TO REPORT. BED IN LOW POSITION AND CALL LIGHT IN REACH.
[2025-10-28 09:01] VITALS: BP 104/53
--- NOTE | 2025-10-28 13:06 | NUR ---
CALLED DR. ROSE TO CLARIFY ORDER FOR AMIODARONE AND SPIRONOLACTONE. PT RECEIVED IT THIS MORNING. DR STATED IF SHE GOT IT THIS MORNING NOT TO GIVE IT AGAIN.
[2025-10-28 17:19] VITALS: BP 104/63
--- NOTE | 2025-10-28 19:08 | NUR ---
SHIFT SUMMARY PT A&OX4, VSS, 1LO2 NON TELE, LIFT PER PHYSICAL THERAPY, PATIENT STATES ABLE TO STAND/PIVOT AT BASELINE. +4 PITTING EDEMA BLE, LASIX SWITCHED FROM ORAL TO IV, DIURESING WELL TO PUREWICK. NO BM THIS SHIFT, PT STATES PASSING GAS. PT PLEASANT AND COOPERATIVE WITH CARES, CALL LIGHT IN REACH.
[2025-10-28 19:49] VITALS: BP 105/58
[2025-10-29 03:32] VITALS: BP 106/56
--- NOTE | 2025-10-29 04:21 | NUR ---
SHIFT SUMMARY NO ACUTE CHANGES THIS SHIFT. PT IS PLEASANT AND COOPERATIVE WITH CARE. PUREWIK WORKING WELL. PT APPEARS TO HAVE SLEPT COMFORTABLY OFF AND ON THROUGHOUT THE NIGHT. ABLE TO MAKE NEEDS KNOWN. NO NEW CHANGES TO REPORT. BED IN LOW POSITION AND CALL LIGHT IN REACH.
[2025-10-29 05:14] LABS: Hematocrit 28.3 % (33.0-51.0); Hemoglobin 8.5 g/dL (11.5-16.0); Mean Corpuscular HGB Conc 30.0 g/dL (31.5-36.5); Mean Corpuscular Volume 95 fL (80-100); NRBC ABSOLUTE 0.02 K/mm3 (0.00-0.02); NRBC Auto 0.1 /100 WBC (0.0-0.2); Platelet Count 218 K/mm3 (150-400); RDW Coefficient Variation 19.6 % (11.7-14.2); RDW Standard Deviation 63.4 fL (35.1-46.3)
[2025-10-29 07:05] LABS: Anion Gap 12.0 mmol/L (3-11); Blood Urea Nitrogen 53.0 mg/dL (8-24); CO2, Blood 22.0 mmol/L (21-32); Calcium, Blood 8.8 mg/dL (8.5-10.1); Chloride, Blood 98.0 mmol/L (98-108); Creatinine, Blood 1.44 mg/dL (0.40-1.00); Glucose, Blood 164.0 mg/dL (70-99); Potassium, Blood 4.4 mmol/L (3.5-5.5); Sodium, Blood 128.0 mmol/L (136-145)
[2025-10-29 07:32] VITALS: BP 111/73
[2025-10-29] MEDS ORDERED: Torsemide 20 MG TAB PO SCH (09:00)
[2025-10-29] MEDS ORDERED: UREA 15 GM POWD.PACK PO SCH (09:00)
[2025-10-29] MEDS ORDERED: Magnesium Hydroxide Conc 10 ML UDC PO ONE (11:30)
--- NOTE | 2025-10-29 17:20 | NUR ---
PATIENT RESTING IN BED TODAY, CALLED WHEN NEEDING ASSISTANCE AND COOPERATIVE WITH CARE. PATIENT NOT REQUESTING PAIN MEDS THIS SHIFT. MEDICATION ADMINISTERED FOR BOWL MOVEMENT. PATIENT WAS ABLE TO HAVE ONE THIS SHIFT. DOCUMENTED. PATIENT HAS NO CONCERNS OR QUESTIONS. CALL LIGHT WITHIN REACH.
[2025-10-30 04:32] VITALS: BP 106/61
--- NOTE | 2025-10-30 04:54 | NUR ---
SHIFT SUMMARY A&OX4. ABLE TO MAKE NEEDS KNOWN. HAD SOME SOB DURING THE NIGHT AND HAD A BREATHING TREATMENT WHICH HELPED. COVERAGE WAS NOT INDICATED FOR HUMALOG BUT LANTUS WAS GIVEN PER ORDERS. PT HAD DIFFICULTY SLEEPING MUCH OF THE NIGHT BUT WAS ABLE TO REST. NO OTHER NEW CHANGES OVER NIGHT. PT IS CURRENTLY SLEEPING IN BED AT LOWEST POSITION WITH CALL LIGHT WITHIN REACH.
[2025-10-30 07:32] VITALS: BP 111/68
[2025-10-30 07:53] LABS: Anion Gap 11.0 mmol/L (3-11); Blood Urea Nitrogen 53.0 mg/dL (8-24); CO2, Blood 24.0 mmol/L (21-32); Calcium, Blood 8.6 mg/dL (8.5-10.1); Chloride, Blood 99.0 mmol/L (98-108); Creatinine, Blood 1.46 mg/dL (0.40-1.00); Glucose, Blood 155.0 mg/dL (70-99); Potassium, Blood 4.6 mmol/L (3.5-5.5); Sodium, Blood 129.0 mmol/L (136-145)
[2025-10-30 13:00] LABS: Hematocrit 30.8 % (33.0-51.0); Hemoglobin 9.0 g/dL (11.5-16.0); Mean Corpuscular HGB Conc 29.2 g/dL (31.5-36.5); Mean Corpuscular Volume 95 fL (80-100); NRBC ABSOLUTE 0.00 K/mm3 (0.00-0.02); NRBC Auto 0.0 /100 WBC (0.0-0.2); Platelet Count 219 K/mm3 (150-400); RDW Coefficient Variation 19.5 % (11.7-14.2); RDW Standard Deviation 65.5 fL (35.1-46.3)
[2025-10-30 13:40] VITALS: BP 107/60
--- NOTE | 2025-10-30 18:44 | NUR ---
PATIENT HAVING MULTIPLE LOOSE STOOLS, UNABLE TO TOLERATE LYING DOWN FOR CHANGE. TURNED OXYGEN UP TO 5 DURING CHANGE AND RETURNED TO 1 LITER. PATIENT TOLERATED WELL.
[2025-10-30 20:05] VITALS: BP 102/65
[2025-10-31 04:46] VITALS: BP 129/85
--- NOTE | 2025-10-31 06:03 | NUR ---
SHIFT SUMMARY NOC PT A/O X 4. PLEASANT AND COOPERATIVE WITH CARE. VSS. PT HAD INCONTINENT LOOSE BM AT BEGINNING OF SHIFT AND BEDTIME MIRALAX HELD AT PT REQUEST. PUREWICK IN PLACE FOR INCONTINENCE. PICC IN [facility]. PT ON 1L/NC FOR SLEEPING, BUT STILL REQUIRES 5L/NC WHEN LYING FLAT FOR CARE, DUE TO PANIC AND DESATURATOIN INTO 80'S. PT POSSIBLE DISCHARGE HOME TODAY. PT CURRENTLY RESTING WITH BED IN LOWEST POSITION, AND CALL LIGHT WITHIN REACH.
[2025-10-31 06:18] LABS: Anion Gap 12.0 mmol/L (3-11); Blood Urea Nitrogen 57.0 mg/dL (8-24); CO2, Blood 24.0 mmol/L (21-32); Calcium, Blood 8.2 mg/dL (8.5-10.1); Chloride, Blood 100.0 mmol/L (98-108); Creatinine, Blood 1.34 mg/dL (0.40-1.00); Glucose, Blood 161.0 mg/dL (70-99); Potassium, Blood 4.7 mmol/L (3.5-5.5); Sodium, Blood 131.0 mmol/L (136-145)
[2025-10-31 07:43] VITALS: BP 103/69
[2025-10-31] MEDS ORDERED: Lidocaine 4% 1 Patch TOP PRN (12:15)
[2025-10-31 15:54] VITALS: BP 108/68
--- NOTE | 2025-10-31 18:43 | NUR ---
PATIENT UP TO CHAIR FOR MOST OF DAY. COOPERATIVE WITH CARE AND NO BM NOTED THIS SHIFT. PATIENT ANTICIPATES BEING DISCHARGED BACK TO HOME TOMORROW. UNABLE TO WEAN OFF OXYGEN PATIENT HAS FEELINGS OF SHORTNESS OF BREATH. CALL LIGHT WITHIN REACH.
[2025-10-31 19:38] VITALS: BP 116/79
[2025-10-31] MEDS ORDERED: Insulin Glargine 100 Unit/ML 3 ML SYR SC SCH (21:00)
[2025-11-01 03:53] VITALS: BP 94/65
[2025-11-01 05:36] LABS: Anion Gap 10.0 mmol/L (3-11); Blood Urea Nitrogen 65.0 mg/dL (8-24); CO2, Blood 24.0 mmol/L (21-32); Calcium, Blood 8.2 mg/dL (8.5-10.1); Chloride, Blood 100.0 mmol/L (98-108); Creatinine, Blood 1.42 mg/dL (0.40-1.00); Glucose, Blood 116.0 mg/dL (70-99); Potassium, Blood 4.3 mmol/L (3.5-5.5); Sodium, Blood 130.0 mmol/L (136-145)
--- NOTE | 2025-11-01 06:12 | NUR ---
SHIFT SUMMARY PT C/O FEELING TIRED AND "DRUGGED" ALL DAY YESTERDAY. PER PT REQUEST, TRAZADONE HELD AT HS. PT HAVING DIFFICULTY STAYING WITHIN FLUID RESTRICTION. ICE CHIPS GIVEN AFTER PT REACHED LIMIT OF FLUID RESTRICTION, BUT SHE CONTINUES TO ASK FOR SOUP AND TEA. EDUCATION AND REINFORCEMENT PROVIDED. PT REMAINS ON 1L NC, INCREASED TO 4L WHEN LYING FLAT FOR POSITION CHANGES AND CARE. PT TURNED AND REPOSITIONED DURING THE NIGHT. PUREWICK DRAINING YELLOW URINE. PT WITH 1 LARGE INCONT BM. LABIAL BX SITE CLEANSED USING PERIBOTTLE AFTER BM. PT SLEPT INTERMITTENTLY DURING THE NIGHT.
[2025-11-01 07:23] VITALS: BP 106/67
[2025-11-01] MEDS ORDERED: METO25ER PO (10:51)
[2025-11-01] MEDS ORDERED: JARDIANCE10 MG PO (10:51)
[2025-11-01] MEDS ORDERED: NYSTATIN100000 U10 MT (10:51)
[2025-11-01] MEDS ORDERED: MIRALAX17 GM PO (10:52)
[2025-11-01] MEDS ORDERED: TORSE20 PO (10:52)
[2025-11-01] MEDS ORDERED: URE-NA PO (10:53)
[2025-11-01] MEDS ORDERED: BUME1 PO (11:48)
[2025-11-01] MEDS ORDERED: LIDO700A20 TOP (11:49)
--- NOTE | 2025-11-01 19:09 | NUR ---
END OF SHIFT NOTE PATIENT RESTING IN BED, A&O4, PATIENT CALLING OUT FOR HELP MOST OF THE DAY, ANXIETY MEDICATION ORDERED AND GIVEN, PATIENT RESTED FOR ABOUT AN HOUR. [facility] [place] PACKET DONE. PATIENT ANXIOUS ABOUT CARE THROUGHOUT THE DAY. REFUSED TO BE CHANGED FOR 3 HOURS, REFUSED TO LET STAFF USE TO LIFT TO ADJUST OR SIT PATIENT UP. ADJUSTING PATIENTS POSITION ABOUT EVERY 10 TO 15 MINUTES PER HER REQUEST. PUREWICK IN PLACE, ATTENDS IN PLACE. NO OTHER CONCERNS FOR THIS SHIFT.
[2025-11-01 19:40] VITALS: BP 100/67
--- NOTE | 2025-11-02 03:47 | NUR ---
SHIFT SUMMARY PT A&OX4. VERY ANXIOUS AND CALLING OUT MOST OF THE NIGHT. POSITION CHANGES EVERY 30 MIN AT THE BEGINNING OF SHIFT AND BY MID TO END OF SHIFT PT WAS ABLE TO REST AND HAVE Q2 REPOSITIONING. PT IS A CARL LIFT. SHE HAS A JEAN-PIERRE PICC LINE. BOUNCING BETWEEN 2L AND 3L NC. THIS RN TRIED TITRATING HER DOWN HOWEVER AFTER DOING THIS OXYGEN LEVEL WOULD DROP INTO THE MID 80'S. PT REQUIRED FREQUENT REMINDING TO DEEP BREATHE AND EXHALE WHEN O2 DROPPED. PUREWICK IS IN PLACE. LAST BOWEL MOVEMENT WAS ON 11/01. SHE IS ON A CARB CONSISTENT DIET. ACHS BLOOD SUGAR CHECKS. SHE IS ON A 1500ML FLUID RESTRICTION. PT REFUSED BOWEL MEDS AND TRAZODONE AT BEGINNING OF SHIFT. BED IN LOWEST POSITION. CALL LIGHT IN REACH.
[2025-11-02 03:57] VITALS: BP 90/73
--- NOTE | 2025-11-02 04:49 | NUR ---
CALL TO DR. PAREDES REGARDING LOW BP. BLOOD PRESSURES HAVE BEEN SOFT THROUGHOUT SHIFT. AT 4AM VITAL ROUNDS PTS SYSTOLIC BP ON AUTOMATIC MACHINE WAS IN THE 70'S TO LOW 100'S AND DIASTOLIC WAS IN THE 40'S TO 50'S. PT IS MORE LETHARGIC NOW THAN AT THE BEGINNING OF SHIFT. THIS RN AND ANOTHER RN ATTEMPTED TO CHECK JOSE BP BUT WAS UNABLE TO HEAR BP SOUNDS. PER DR. PAREDES, START MIDODRINE 5MG NOW. WILL CONTINUE TO MONITOR CLOSELY AND NOTIFY DR. PAREDES IF NO CHANGES IN BP.
[2025-11-02 06:03] LABS: Anion Gap 11.0 mmol/L (3-11); Blood Urea Nitrogen 76.0 mg/dL (8-24); CO2, Blood 24.0 mmol/L (21-32); Calcium, Blood 8.3 mg/dL (8.5-10.1); Chloride, Blood 99.0 mmol/L (98-108); Creatinine, Blood 1.79 mg/dL (0.40-1.00); Glucose, Blood 117.0 mg/dL (70-99); Potassium, Blood 4.7 mmol/L (3.5-5.5); Sodium, Blood 129.0 mmol/L (136-145)
[2025-11-02 06:10] VITALS: BP 92/79
[2025-11-02 06:16] VITALS: BP 92/69
[2025-11-02 07:37] VITALS: BP 114/60
[2025-11-02] MEDS ORDERED: SOAANZ20 M2 PO (08:02)
[2025-11-02 09:08] VITALS: BP 127/95
--- NOTE | 2025-11-02 10:30 | NUR ---
PT IS REFUSING MEDICATIONS THIS AM. SHE IS MOANING AND GROANING, FOR LONG PERIODS OF TIME STAFF ATTEMPT TO UNDERSTAND WHAT SHE IS ASKING FOR. SHE REFUSES MEDS, SHE REFUSED BREAKFAST, HOME O2 EVAL WAS COMPLETED BY RT, SHE WAS VERY MINIMALLY WILLING TO MOVE IN BED FOR THE EVAL PER RT. UNABLE TO TRULY DETERMINE WHAT SHE WANTS. WHEN STAFF LEAVE THE ROOM SHE PRESSES THE CALL BUTTON, WHEN STAFF RETURN AND ASK IF SHE NEEDS SOMETHING SHE SAYS NO. UNABLE TO COMPLETE A FULL ASSESSMENT THE PT MOANS CONSTANTLY, HEART AND LUNG SOUNDS WERE NOT ABLE TO BE AUSCULTATED. PT DOES NOT APPEAR TO BE IN ANY DISTRESS. ALTHOUGH SHE WILL SCREAM HELP ME, THEN DENY NEEDING HELP, OR SHE WILL YELL HELP ME; WHEN STAFF COME TO THE ROOM SHE WILL SAY SHE IS READY TO GO TO BED. THE PT IS IN BED. SHE WAS MEDICATED WITH ATARAX BY THE BREAK RN WHEN SHE DECLINED MEDICATIONS THIS AM. AWARE AND ASKED THAT WE REATTEMPT THE ADMINISTRATION LATER IN THE SHIFT. PLAN FOR THE PT IS TO DC BACK TO HER [facility]IOR LIV[facility] SITUATION TRANSPORT SET FOR 1330.
--- NOTE | 2025-11-02 17:03 | NUR ---
DISCHARGE NOTE- PT WAS TRANSFERED VIA THE LIFT TO A WHEEL CHAIR. SHE WAS TAKEN VIA WC TRANSPORT BACK TO HER FACILITY. SHE AGREED SHE WANTED TOP GO HOME, SHE MOANED AND GROANED FOR STAFF ALL DAY, VSS. SHE REFUSED ALL PO MEDS ON 3 DIFFERENT OCCASSIONS BEFORE THEY WERE DOCUMENTED REFUSED. MD AWARE OF HER REFUSAL. PICC LINE WAS DC'D BY PHARMACY GRADUATE INTERN. PT HAD NO S&S OF DISTRESS NOTED AT THE TIME OF HER DISCHARGE, OTHER THAN THE MOANING SHE HAS BEEN DOING ALL DAY. SHE RECIEVED A BED BATH AND HAD A FRESH MEPILEX APPLIED PRIOR TO DISCHARGE.
== END 2025-11-02 13:15 | DRG 853 ==
LOC: ICUE 16:39 → MEDS 18:02 → PCU 18:02 → ICUE 10-22 12:47 → PCU 10-24 09:18 → MEDS 10-27 15:20 → ENPENDDIS 10-30 14:20 → EDPENDDIS 11-02 07:38 → EDPENDDISTM 11-02 07:38 → EDPENDDISDT 11-02 07:38 → MEDS 11-02 13:15
PROVIDERS: Internal Medicine; Nurse Practitioner Acute Care; ADMIT Internal Medicine
PROC: 0T9B70Z Drainage of Bladder with Drainage Device, Via Natural or Artificial Opening (ICD-10-PCS; 2025-10-20)
PROC: 3E033XZ Introduction of Vasopressor into Peripheral Vein, Percutaneous Approach (ICD-10-PCS; 2025-10-20)
PROC: 3E03329 Introduction of Other Anti-infective into Peripheral Vein, Percutaneous Approach (ICD-10-PCS; 2025-10-20)
PROC: 3E02340 Introduction of Influenza Vaccine into Muscle, Percutaneous Approach (ICD-10-PCS; 2025-10-20)
PROC: 02HV33Z Insertion of Infusion Device into Superior Vena Cava, Percutaneous Approach (ICD-10-PCS; 2025-10-21)
PROC: B548ZZA Ultrasonography of Superior Vena Cava, Guidance (ICD-10-PCS; 2025-10-21)
PROC: 30233J1 Transfusion of Nonautologous Serum Albumin into Peripheral Vein, Percutaneous Approach (ICD-10-PCS; 2025-10-21)
PROC: 0UBMXZX Excision of Vulva, External Approach, Diagnostic (ICD-10-PCS; principal; 2025-10-22)
PROC: 0DB78ZX Excision of Stomach, Pylorus, Via Natural or Artificial Opening Endoscopic, Diagnostic (ICD-10-PCS; 2025-10-24)
DX: A41.51 Sepsis due to Escherichia coli [E. coli] (principal); I50.33 Acute on chronic diastolic (congestive) heart failure; R65.21 Severe sepsis with septic shock; K25.4 Chronic or unspecified gastric ulcer with hemorrhage; J96.01 Acute respiratory failure with hypoxia; E23.0 Hypopituitarism; C92.10 Chronic myeloid leukemia, BCR/ABL-positive, not having achieved remission; E87.20 Acidosis, unspecified; I13.0 Hypertensive heart and chronic kidney disease with heart failure and stage 1 through stage 4 chronic kidney disease, or unspecified chronic kidney disease; Z68.43 Body mass index [BMI] 50.0-59.9, adult; N12 Tubulo-interstitial nephritis, not specified as acute or chronic; I31.39 Other pericardial effusion (noninflammatory); N17.9 Acute kidney failure, unspecified; C85.90 Non-Hodgkin lymphoma, unspecified, unspecified site; E27.40 Unspecified adrenocortical insufficiency; E87.1 Hypo-osmolality and hyponatremia; Z66 Do not resuscitate; J44.9 Chronic obstructive pulmonary disease, unspecified; I48.0 Paroxysmal atrial fibrillation; E11.22 Type 2 diabetes mellitus with diabetic chronic kidney disease; N18.30 Chronic kidney disease, stage 3 unspecified; E78.5 Hyperlipidemia, unspecified; G47.33 Obstructive sleep apnea (adult) (pediatric); E03.9 Hypothyroidism, unspecified; D50.9 Iron deficiency anemia, unspecified; K75.81 Nonalcoholic steatohepatitis (NASH); D63.1 Anemia in chronic kidney disease; K74.60 Unspecified cirrhosis of liver; E87.6 Hypokalemia; N90.89 Other specified noninflammatory disorders of vulva and perineum; E66.01 Morbid (severe) obesity due to excess calories; Z23 Encounter for immunization; Z79.01 Long term (current) use of anticoagulants; Z79.4 Long term (current) use of insulin; Z79.52 Long term (current) use of systemic steroids; Z99.89 Dependence on other enabling machines and devices; Z79.51 Long term (current) use of inhaled steroids; Z79.899 Other long term (current) drug therapy; Z79.890 Hormone replacement therapy; Z88.8 Allergy status to other drugs, medicaments and biological substances; Z88.5 Allergy status to narcotic agent; Z91.018 Allergy to other foods; Z91.010 Allergy to peanuts; Z90.49 Acquired absence of other specified parts of digestive tract; Z90.710 Acquired absence of both cervix and uterus; Z90.722 Acquired absence of ovaries, bilateral; Z90.89 Acquired absence of other organs; Z98.890 Other specified postprocedural states; Z87.891 Personal history of nicotine dependence; Z79.85 Long-term (current) use of injectable non-insulin antidiabetic drugs
CPT/HCPCS: 36415; 36556; 36569; 71045; 80048; 80053; 82607; 82728; 82746; 82803; 82947; 83540; 83550; 83605; 83735; 83880; 84439; 84443; 84481; 84484; 85014; 85018; 85025; 85027; 85610; 86850; 86900; 86901; 86923; 87040; 87077; 87086; 87186; 88305; 88341; 88342; 93005; 93010; 93306; 94640; 94660; 94760; 94761; 94762; 97110; 97161; 97530; A9270; C1751; J0282; J0330; J0696; J1100; J1720; J1750; J1815; J1938; J2003; J2405; J2704; J3010; J7040; J7050; J7120; J7512; P9016; P9047